=== PATIENT | female | born 1965 | race Caucasian/White ===

== ENCOUNTER → 2016-08-29 16:42 | Outpatient (CLI) | payer MEDICAID ==
[2013-10-16 15:28] VITALS: BMI 29.5
[~2016-08-29 16:42] MED LIST: BAYER CHEWABLE81 MG PO; NORCO 10/325 TA1 TA1 PO; NORVASC5 MG PO; POTASSIUM99 M1 PO
== END | disposition home or self-care (01) ==
LOC: D.MAMMO 13:45
DX: Z12.31 Encounter for screening mammogram for malignant neoplasm of breast (principal)

== ENCOUNTER → 2017-07-02 11:03 | Outpatient (CLI) | payer OTHER ==
[2013-10-16 15:28] VITALS: BMI 29.5
== END | disposition home or self-care (01) ==
LOC: D.RAD 06-11 13:00
DX: Z02.71 Encounter for disability determination (principal)